=== PATIENT | female | born 1990 | race Caucasian/White ===

== ENCOUNTER → 2017-09-07 | Outpatient (CLI) | payer OTHER | END | disposition home or self-care (01) | LOC: LAB EV 10:28 → LAB SHORT 10:28 | DX: R50.9 Fever, unspecified (principal) | CPT/HCPCS: 87070 ==

== ENCOUNTER → 2019-02-24 | Outpatient (CLI) | payer OTHER ==
[~2019-02-24] MED LIST: CITA20 PO; ORAL BIRTH CONTROL
[2019-02-26 23:06] LABS: CHLAMYDIA TRACHOMATIS, NAA Negative (Negative); NEISSERIA GONORRHOEAE, NAA Negative (Negative)
== END | disposition home or self-care (01) ==
LOC: LAB SHORT 17:23 → LAB 17:23
PROVIDERS: Obstetrics & Gynecology
DX: N89.8 Other specified noninflammatory disorders of vagina (principal); Z20.2 Contact with and (suspected) exposure to infections with a predominantly sexual mode of transmission
CPT/HCPCS: 87070; 87205; 87491; 87591

== ENCOUNTER 2019-03-22 10:23 | Emergency (ER) | payer OTHER ==
[~2019-03-22] VITALS: Ht 162.6 cm; Wt 72.6 kg
[2019-03-22] MEDS ORDERED: ORAL BIRTH CONTROL (10:34)
[2019-03-22] MEDS ORDERED: CITA20 PO (10:34)
[2019-03-22 11:17] LABS: Base Excess Venous -2.3 mmol/L; PCO2 Venous 34.4 mmHg (38-42); PO2 Venous 93.6 mmHg (38-42); pH Blood Venous 7.42 (7.34-7.37)
== END 2019-03-22 12:16 | disposition home or self-care (01) ==
LOC: ER 10:23
PROVIDERS: Emergency Medicine
DX: Z77.29 Contact with and (suspected) exposure to other hazardous substances (principal)
CPT/HCPCS: 36415; 82375; 82803; 99283

== ENCOUNTER → 2019-06-29 | Outpatient (CLI) | payer OTHER ==
[2019-06-29 15:05] LABS: Candida species (DNA Probe) Negative (NEGATIVE); G. vaginalis (DNA Probe) Negative (NEGATIVE); T. vaginalis (DNA Probe) Negative (NEGATIVE)
== END | disposition home or self-care (01) ==
LOC: LAB 11:50 → LAB SHORT 11:50
PROVIDERS: Obstetrics & Gynecology
DX: N89.8 Other specified noninflammatory disorders of vagina (principal)
CPT/HCPCS: 87480; 87510; 87660

== ENCOUNTER → 2020-07-11 | Outpatient (CLI) | payer OTHER | END | disposition home or self-care (01) | LOC: PLD 15:32 → LAB SHORT 15:32 | DX: R10.9 Unspecified abdominal pain (principal) | CPT/HCPCS: 87077; 87086; 87186 ==

== ENCOUNTER → 2021-11-14 | Outpatient (CLI) | payer OTHER ==
[2021-11-15 15:07] LABS: HPV 16 Negative (Negative); HPV 18 Negative (Negative); HPV OTHER HR TYPES Negative (Negative)
== END | disposition home or self-care (01) ==
LOC: LAB 15:01 → LAB SHORT 15:01
PROVIDERS: Obstetrics & Gynecology
DX: Z12.4 Encounter for screening for malignant neoplasm of cervix (principal)
CPT/HCPCS: 87624; G0123

== ENCOUNTER → 2023-09-06 | Outpatient (CLI) | payer OTHER | END | disposition home or self-care (01) | LOC: LAB 09:51 → LAB SHORT 09:51 | DX: N39.0 Urinary tract infection, site not specified (principal) | CPT/HCPCS: 87077; 87086; 87186 ==

== ENCOUNTER 2024-03-10 10:15 | Day surgery (SDC) | payer OTHER ==
[~2024-03-10] VITALS: Ht 167.6 cm; Wt 65.2 kg
[2024-03-10] VITALS (17 sets, daily range): BP systolic 102–129; BP diastolic 63–91
[2024-03-10] MEDS ORDERED: Lactated Ringer's 1,000 ML IV SCH (11:15)
[2024-03-10] MEDS ORDERED: LEVFLO500 PO (11:38)
[2024-03-10 12:18] LABS: BASOPHILS ABSOLUTE AUTO 0.08 K/mm3 (0.00-0.23); BASOPHILS PERCENT AUTO 1 % (0-2); EOSINOPHILS ABSOLUTE AUTO 0.05 K/mm3 (0.00-0.68); EOSINOPHILS PERCENT AUTO 0 % (0-6); Hematocrit 45.1 % (33.0-51.0); Hemoglobin 15.4 g/dL (11.5-16.0); IMMATURE GRAN ABSOLUTE AUTO 0.04 K/mm3 (0.00-0.10); IMMATURE GRAN PERCENT AUTO 0 % (0-1); LYMPHOCYTES PERCENT AUTO 25 % (21-46); MONOCYTES ABSOLUTE AUTO 1.18 K/mm3 (0.16-1.47); MONOCYTES PERCENT AUTO 9 % (4-13); Mean Corpuscular HGB 31.6 pg (26.0-34.0); Mean Corpuscular HGB Conc 34.1 g/dL (31.5-36.5); Mean Corpuscular Volume 93 fL (80-100); Mean Platelet Volume 9.5 fL (9.1-12.4); NEUTROPHILS ABSOLUTE AUTO 8.52 K/mm3 (1.96-9.15); NEUTROPHILS PERCENT AUTO 65 % (41-73); Platelet Count 276 K/mm3 (150-400); RDW Coefficient Variation 14.1 % (11.7-14.2); RDW Standard Deviation 48.2 fL (35.1-46.3); Red Blood Cell Count 4.87 M/mm3 (3.80-5.20); White Blood Cell Count 13.17 K/mm3 (4.00-11.30)
[2024-03-10] MEDS ORDERED: propofoL 60 ML IV ONE (12:41)
[2024-03-10] MEDS ORDERED: Sugammadex Sodium 200 MG/2ML SDV (100 MG/ML) ONE (12:42)
[2024-03-10] MEDS ORDERED: Ondansetron HCl 2 MG / ML 2ML Vial ONE (12:42)
[2024-03-10] MEDS ORDERED: Dexamethasone Sod Phos 10 MG/ML 1ML VIAL ONE (12:42)
[2024-03-10] MEDS ORDERED: FentaNYL Citrate 50 MCG/ML 2 ML Injection ONE ×3 (12:42→14:42)
[2024-03-10] MEDS ORDERED: Rocuronium Bromide 10 MG/ML 5ML Injection IV ONE (12:42)
[2024-03-10] MEDS ORDERED: Midazolam HCl 1MG / ML 2ML Vial ONE ×2 (12:42→14:03)
[2024-03-10] MEDS ORDERED: Lidocaine 1%-Epineph 1:100000 20 ML MDV INJ ONE (13:26)
[2024-03-10] MEDS ORDERED: Ketorolac Tromethamine 30mg Vial ONE (13:47)
[2024-03-10] MEDS ORDERED: HYDROmorphone HCl/Pf 1MG SYR ONE (13:57)
[2024-03-10] MEDS ORDERED: HYDROcodone 5-APAP 325 TAB PO PRN (14:00)
[2024-03-10] MEDS ORDERED: Albuterol 2.5 MG/3 ML VIAL ONE (14:04)
[2024-03-10] MEDS ORDERED: Lactated Ringer's 1,000 ML IV ONE (14:09)
[2024-03-10] MEDS ORDERED: LORazepam 2 MG/ML 1ML Injection ONE (14:46)
--- NOTE | 2024-03-10 15:10 | NUR ---
ARRIVAL TO SURGICAL UNIT VIA GOURNEY, SLID TO HOSPITAL BED. VERY DROWSY, BUT CAN OPEN EYES FOR SHORT TIME. SLURRED SPEECH. ALERT & ORIENTED. ABD SOFT w/ LAP SITES x 3 w/ STERI STRIPS. LUNGS CLEAR. HRR. DENIES PAIN BUT SLIGHT NAUSEA. COOL WASHCLOTH DECLINED. WISHES TO REST & SLEEP. PLAN FOR CONTINUAL O2 MONITORING WHILE SLEEPING. SPOUSE TO BEDSIDE.
[2024-03-10] MEDS ORDERED: Ondansetron 8 MG SoluTab SL ONE (15:40)
--- NOTE | 2024-03-10 16:59 | NUR ---
UP TO USE BATHROOM. VOIDED EASILY w/ SLIGHT BURNING SENSATION. 125 mls. C/O PAINS UNDER RIB CAGE. PT EDUCATED. DECLINES NORCO.
--- NOTE | 2024-03-10 17:45 | NUR ---
DC EDUCATION DISCUSSED & DAY SURGERY HANDOUT GIVEN. SPOUSE & PT FEEL COMFORTABLE w/ DC. ESCORTED OUT VIA WC.
== END 2024-03-10 17:45 | disposition home or self-care (01) ==
LOC: ORD 10:15 → ORSCMMR 10:15 → SURS 14:47 → ORD 17:45
PROVIDERS: Obstetrics & Gynecology
PROC: 0DNU4ZZ Release Omentum, Percutaneous Endoscopic Approach (ICD-10-PCS; principal; 2024-03-10 12:00)
PROC: 0UT74ZZ Resection of Bilateral Fallopian Tubes, Percutaneous Endoscopic Approach (ICD-10-PCS; principal; 2024-03-10 12:00)
DX: N70.11 Chronic salpingitis (principal); R10.2 Pelvic and perineal pain; K66.0 Peritoneal adhesions (postprocedural) (postinfection); K21.9 Gastro-esophageal reflux disease without esophagitis; F17.210 Nicotine dependence, cigarettes, uncomplicated; F41.9 Anxiety disorder, unspecified
CPT/HCPCS: 85025; 88305; A9270; J1100; J1170; J1171; J1885; J2060; J2250; J2405; J2704; J3010; J7120

== ENCOUNTER → 2024-03-30 | Outpatient (CLI) | payer OTHER ==
[~2024-03-30] MED LIST changes: +LEVFLO500 PO
[2024-03-30 09:21] LABS: BASOPHILS PERCENT AUTO 1 % (0-2); EOSINOPHILS ABSOLUTE AUTO 0.24 K/mm3 (0.00-0.68); EOSINOPHILS PERCENT AUTO 3 % (0-6); Hematocrit 42.4 % (33.0-51.0); Hemoglobin 14.4 g/dL (11.5-16.0); IMMATURE GRAN ABSOLUTE AUTO 0.03 K/mm3 (0.00-0.10); IMMATURE GRAN PERCENT AUTO 0 % (0-1); LYMPHOCYTES ABSOLUTE AUTO 2.63 K/mm3 (0.84-5.20); LYMPHOCYTES PERCENT AUTO 29 % (21-46); MONOCYTES PERCENT AUTO 10 % (4-13); Mean Corpuscular HGB 32.2 pg (26.0-34.0); Mean Corpuscular Volume 95 fL (80-100); Mean Platelet Volume 9.2 fL (9.1-12.4); NEUTROPHILS ABSOLUTE AUTO 5.22 K/mm3 (1.96-9.15); NEUTROPHILS PERCENT AUTO 57 % (41-73); Platelet Count 298 K/mm3 (150-400); RDW Coefficient Variation 14.9 % (11.7-14.2); RDW Standard Deviation 51.6 fL (35.1-46.3); Red Blood Cell Count 4.47 M/mm3 (3.80-5.20); White Blood Cell Count 9.12 K/mm3 (4.00-11.30)
[2024-03-30 09:31] LABS: Albumin, Blood 3.9 g/dL (3.4-5.0); Albumin/Globulin Ratio 1.3 (0.8-1.8); Bilirubin, Total 0.3 mg/dL (0.1-1.0); Bun/Creatinine Ratio 5.7 (12.0-20.0); Calcium, Blood 8.9 mg/dL (8.5-10.1); Creatinine, Blood 0.87 mg/dL (0.40-1.00); Globulin, Blood 3.1 g/dL (2.2-4.0); Potassium, Blood 4.1 mmol/L (3.5-5.5)
== END | disposition home or self-care (01) ==
LOC: LAB 09:16 → LAB SHORT 09:16
PROVIDERS: Physician Assistant Medical
DX: R10.30 Lower abdominal pain, unspecified (principal)
CPT/HCPCS: 80053; 85025

== ENCOUNTER 2024-09-15 07:22 | Day surgery (SDC) | payer OTHER ==
[~2024-09-15] VITALS: Ht 162.6 cm; Wt 63.7 kg
[2024-09-15] MEDS ORDERED: propofoL 50 ML IV ONE (07:26)
[2024-09-15] MEDS ORDERED: Lactated Ringer's 1,000 ML IV ONE ×2 (07:26→08:13)
[2024-09-15 09:41] VITALS: BP 103/75
== END 2024-09-15 09:32 | disposition home or self-care (01) ==
LOC: ORSCSDS 07:22
PROVIDERS: Specialist
PROC: 0DBN8ZX Excision of Sigmoid Colon, Via Natural or Artificial Opening Endoscopic, Diagnostic (ICD-10-PCS; principal; 2024-09-15 08:45)
DX: R19.4 Change in bowel habit (principal); R10.32 Left lower quadrant pain; Z83.719 Family history of colon polyps, unspecified; K63.5 Polyp of colon; K64.8 Other hemorrhoids
CPT/HCPCS: 88305; J2704; J7120